=== PATIENT | female | born 2000 | race Caucasian/White ===

== ENCOUNTER 2024-12-31 14:43 | Emergency (ER) | payer OTHER ==
[2024-12-31] MEDS: DERMABOND TOPICAL SKIN ADHESIVE TOP ONE (15:15)
[2024-12-31 15:30] LABS: PLATELET COUNT, AUTOMATED 297 10^3/uL (150-450)
[2024-12-31 16:02] LABS: ETHYL ALCOHOL (ETHANOL) 0.018 % (0.000-0.010)
[2024-12-31 16:03] LABS: SALICYLATE LEVEL < 3.0 MG/DL (<30)
[2024-12-31 16:04] LABS: ALT/SGPT 16 U/L (7.0-40); AST/SGOT 14 U/L (<34); CALCIUM LEVEL 9.5 MG/DL (8.5-10.1); CARBON DIOXIDE LEVEL 24 MMOL/L (20-31); CHLORIDE LEVEL 109 MMOL/L (98-107); CREATININE FOR GFR 0.75 MG/DL (0.55-1.30); GLOMERULAR FILTRATION RATE > 90.0 (>60); POTASSIUM SERUM 3.6 MMOL/L (3.5-5.1); SODIUM LEVEL 143 MMOL/L (136-145)
[2024-12-31 16:31] LABS: HCG, SERUM QUALITATIVE NEGATIVE (NEGATIVE)
[2024-12-31 17:04] LABS: AMPHETAMINES LEVEL URINE NEGATIVE (NEGATIVE); BARBITURATES URINE NEGATIVE (NEGATIVE); BENZODIAZEPINES URINE NEGATIVE (NEGATIVE); METHADONE URINE NEGATIVE (NEGATIVE); OPIATES URINE NEGATIVE (NEGATIVE); PHENCYCLIDINE URINE NEGATIVE (NEGATIVE)
[2024-12-31 17:14] LABS: CANNABINOIDS URINE POSITIVE (NEGATIVE); COCAINE METABOLITE URINE POSITIVE (NEGATIVE)
[2024-12-31 20:16] VITALS: BP 132/71; TEMP 97.7; O2SAT 98
== END 2024-12-31 21:14 | disposition home or self-care (01) ==
LOC: M ED 14:43
DX: F43.89 Other reactions to severe stress (principal); F10.10 Alcohol abuse, uncomplicated; F12.90 Cannabis use, unspecified, uncomplicated; F14.90 Cocaine use, unspecified, uncomplicated